=== PATIENT | male | born 1950 ===

== ENCOUNTER 2024-10-31 14:58 | Outpatient (AMB) | payer MEDICARE, SELFPAY ==
[2024-10-31 15:05] VITALS: BP 152/79; PULSE 59; RESP 18; O2SAT 98; BMI 27.4
--- NOTE | 2024-10-31 15:05 | MHC.OFFVIS ---
Vital Signs 10/31/24 15:05 Height 6 ft 3 in Weight 219 lb BMI 27.4 BP 152/79 H Blood Pressure Location Lt brachial Position Sitting Respiration 18 Pulse 59 Pulse Source Pulse Oximeter Pulse Oximetry (%) 98 Oxygen Delivery Method Room Air Intake Visit Reasons: Chronic L3,4,and 5 compression [employer] Required: No Allergies No Known Allergies Allergy (Verified 10/31/24 15:06) HPI Comments Details: Ronnie is very pleasant 74 years old gentleman who presents in my office by the referral from [place] to evaluate pain in the lower back. However on the appointment with me patient stated that his pain in the back is very mild however he would like to discuss pain in the left knee. Reported that this pain started 3 weeks ago when he developed swollen and red left knee. He thought it is podagra, exacerbation of the gout. He was in the past diagnose with the gout.. He was investigated and he was found to be positive for Lyme disease. He reports pain in the left knee very severe. He has an appointment with infectious disease doctor to evaluate whether or not he needs antibiotic therapy to treat his Lyme disease. In terms of tissue damage he describes his pain as sharp, hot burning, dull, aching, tiring, exhausting sensation possible. He never had physical therapy for this condition. He had x-ray at [facility] which is not available for me today. In fact he has x-ray for the lumbar spine there as well which is also not available for me today. He never had any injections. He was given indomethacin which helps his pain minimally to moderately and at least it decreased some swelling. Also took 6 days course of taper of prednisone. He never had any injections. His past medical history significant for coronary artery disease with 50% lad block and 10% circumflex block, he also has history of kidney stones. He had lithotripsy to treat his kidney stones. He denies smoking cigarettes he denies drinking alcohol he drinks green tea he denies soda he denies recreational drugs at this time however reports history of cocaine abuse in the distant past. Review of Systems Const All systems reviewed & are unremarkable except as noted in HPI and below ENT Reports Normal hearing present Neuro Reports Normal hearing present, Denies Abnormal speech present, Denies confusion and Denies Sensory deficit (Neuro) Psych Denies confusion Physical Exam Vital Signs: Last Vital Signs Pulse 59 10/31/24 15:05 Resp 18 10/31/24 15:05 BP 152/79 H 10/31/24 15:05 Pulse Ox 98 10/31/24 15:05 Oxygen Delivery Method Room Air 10/31/24 15:05 BMI result Body Mass Index 27.4 Const General: no acute distress; No confusion Nutritional Appearance: average body habitus and well nourished Orientation/consciousness: patient oriented x3 and No confusion Limitations: no limitations Eyes General: appearance normal, both eyes and all related structures Pupils: Equal, round and reactive pupils present EOM: EOMs intact bilaterally Neck Neck: Yes full ROM Chest Chest palpation & inspection: normal inspection of the chest Resp Effort & Inspection: normal respiratory effort, able to speak in complete sentences, normal respiratory pattern, no audible wheezes and no cough Cardio Jugular venous distension: no JVD GI Inspection: Yes normal to inspection Neuro General: patient oriented x3, gait normal and No confusion Cranial nerves: Yes CN's II-XII intact bilaterally, Yes Equal, round and reactive pupils present, Yes Normal hearing present and Yes Ability to bilaterally elevate shoulders present Speech: No Abnormal speech present Gait exam (Neuro): Normal gait present Motor exam (neuro): 5/5 motor strength present throughout Sensory Exam: No Sensory deficit (Neuro) Extrem Other: On the examination there is no significant redness or swelling of the left knee in comparison to the right 1 no crepitus on motions. The range of motion of the left knee is preserved. There is tenderness on palpation in the medial surface of the left knee. General: No pedal edema Psych Speech and movement: Normal speech and movement present Affect: normal affect Attitude: cooperative Thought process: Normal thought process present Thought content: Normal thought content present Insight: Good insight present (Psych) Judgement: Good judgement present (Psych) Assessment & Plan Assessment & Plan (1) Chronic pain syndrome: Code(s): G89.4 - Chronic pain syndrome Category: Medical (2) Left knee pain: Code(s): M25.562 - Pain in left knee Category: Medical (3) Gout: Code(s): M10.9 - Gout, unspecified Category: Medical (4) Lyme disease: Code(s): A69.20 - Lyme disease, unspecified Category: Medical Plan If symptoms and signs of left knee pain of this patient is are coming from the exacerbation of the Lyme disease he needs to be treated with antibiotics. He has an appointment with infectious disease to make a decision. If this is coming from the gout he needs to be treated with allopurinol. In any case I will send him for physical therapy for the left knee pain. If his condition it does not require antibiotic treatment he is welcome to come back and we will discuss further treatment. I also will request him to sign medical information release note and obtained from his primary care doctor image reports about his left knee x-ray as well as image reports of the lower back x-ray. No new appointment at this time the patient with give us a call after he will complete physical therapy. Orders: Orders PT Evaluation and Treatment Today M25.562 - Pain in left knee Patient Instructions: I here by testify that I spent 45 minutes in conversation with this patient as well as planning his care and organizing this note. Coding Level of Care Code New Pt Level 4 (84426) Diagnoses Chronic pain syndrome G89.4 Left knee pain M25.562 Gout M10.9 Lyme disease A69.20
--- OUTSIDE RECORDS SUMMARY | 2024-10-31 16:19 | XMS_ITS | Clinical Summary ---
Author Organization [facility] Address [address] [place] [address] Phone Care Team Providers Care Coat Joiner Name Role Phone Talia Nicholas MD Primary Care Provider [phone] Allergies No known active allergies Medications acetaminophen (TYLENOL) 500 mg tablet Take 1 tablet (500 mg total) by mouth every 6 (six) hours if needed. 4 Active cyanocobalamin (VITAMIN B-12) 500 mcg tablet Take 1 tablet (500 mcg total) by mouth 1 (one) time each day. 90 each 3 5 026 Active indomethacin (INDOCIN) 25 mg capsuleIndicati ons:Chronic gout of knee, unspecified cause, unspecified laterality Take 1 capsule (25 mg total) by mouth 3 (three) times a day if needed for mild pain (pain). 90 capsule 5 5 026 Active diclofenac (VOLTAREN) 75 mg EC tablet Take 1 tablet (75 mg total) by mouth 2 (two) times a day. Do not crush, chew, or split. 60 tablet 5 Active meclizine (ANTIVERT) 25 mg tablet Take 1 Tablet by mouth 3 times daily as needed for Other (vertigo). 4 025 Discontinu ed(Therapy completed) clotrimazole-be tamethasone (LOTRISONE) 1-0.05 % creamIndication s:Rash Apply topically 2 (two) times a day. 30 g 3 4 025 Discontinu ed(Therapy completed) multivitamin tablet Take 1 tablet by mouth 1 (one) time each day. 025 Discontinu ed(Therapy completed) hydrocortisone 2.5 % cream Apply topically 2 (two) times a day if needed for irritation or rash. 30 g 5 5 025 Discontinu ed(Therapy completed) predniSONE (DELTASONE) 20 mg tablet Take 3 tabs (60mg) daily for 3 days, then take 2 tabs (40mg) daily for 3 days, then take 1 tab (20mg) daily for 3 days. 18 tablet 5 025 Active Problems Problem Noted Date Diagnosed Date Asthma 12/07/2023 CAD (coronary artery disease) 08/18/2021 Assessment & Plan (01/31/2024 1:47 PM EST): Orders: Stress echocardiogram (TTE) exercise with PRN contrast, bubble, strain, and 3D order panel; Future COVID-19 08/17/2021 Chest pain 04/30/2021 Assessment & Plan (01/31/2024 1:47 PM EST): Orders: ECG 12 lead Palpitations 04/30/2021 Erosive esophagitis 11/02/2017 COPD (chronic obstructive pu lmonary disease) ([facility] V24, [facility] V28) 10/21/2017 Esophageal reflux 10/13/2017 Assessment & Plan (09/17/2024 9:14 AM EDT): Orders: Lipid panel with reflex to direct LDL; Future Comprehensive metabolic panel; Future Hiatal hernia 10/13/2017 Gout 07/21/2017 Assessment & Plan (09/17/2024 9:14 AM EDT): Orders: Lipid panel with reflex to direct LDL; Future Comprehensive metabolic panel; Future Hypertension 07/21/2017 Assessment & Plan (09/17/2024 9:14 AM EDT): Orders: Lipid panel with reflex to direct LDL; Future Comprehensive metabolic panel; Future Assessment & Plan (09/17/2024 9:14 AM EDT): Orders: Lipid panel with reflex to direct LDL; Future Comprehensive metabolic panel; Future Assessment & Plan (01/31/2024 1:47 PM EST): Vitamin B12 deficiency 05/01/2017 Ventricular bigeminy 04/27/2017 Insomnia 05/21/2016 Vitamin D deficiency 11/01/2015 Esophageal stricture 06/05/2015 Encounters Date Type Department Care Team Description 10/23/2024 12:30 PM EDT Consult Orthopedics [address] [phone] Ari Contreras PA Effusion of left knee (Primary Dx); Acute pain of left knee 10/03/2024 12:45 PM EDT - 10/03/2024 11:59 PM EDT Hospital Encounter [facility] Xray [address] [place] [phone] Knee swelling Discharge Disposition: Home or Self Care 10/03/2024 12:00 PM EDT Office Visit Internal Medicine [facility] [address] [phone] Talia Nicholas MD Knee swelling (Primary Dx); Acute gout of left knee, unspecified cause 10/01/2024 Telephone Internal Medicine [facility] [address] [phone] Talia Nicholas MD 09/24/2024 Telephone Internal Medicine - [facility] [address] [phone] Talia Nicholas MD 09/17/2024 9:33 AM EDT - 09/17/2024 11:59 PM EDT Hospital Encounter [facility] Xray [address] [place] [phone] Chronic midline low back pain without sciatica Discharge Disposition: Home or Self Care 09/17/2024 8:30 AM EDT Office Visit Internal Medicine [facility] [address] [facility] [address] [place] [address] Talia Nicholas MD Primary hypertension (Primary Dx); Encounter for subsequent annual wellness visit (AWV) in Medicare patient; Chronic gout of knee, unspecified cause, unspecified laterality; Gastroesophageal reflux disease without esophagitis; Nephrolithiasis; Hypertension, unspecified type; Screening for malignant neoplasm of prostate; Chronic midline low back pain without sciatica from Last 3 Months Immunizations Name Administration Dates Next Due Pneumococcal conjugate 13 [facility] (Prevnar 13, PCV13) 2mo and older 06/08/2017 Medical History Medical History Date Comments Asthma DX:Asthma COPD (chronic obstructive pu lmonary disease) ([facility] V24, [facility] V28) 10/21/2017 DX:COPD (chronic o bstructive pulmonary disease) ([facility]) Erosive esophagitis 11/02/2017 DX:Erosive e sophagitis Esophageal reflux 10/13/2017 DX:Esophageal reflux Esophageal stricture 06/05/2015 DX:Esophage al stricture Gout 07/21/2017 DX:Gout Hiatal hernia 10/13/2017 DX:Hiatal hernia Hypertension 07/21/2017 DX:Hypertension Insomnia 05/21/2016 DX:Insomnia Ventricular bigeminy 04/27/2017 DX:Ventricu lar bigeminy Vitamin B12 deficiency 05/01/2017 DX:Vitami n B12 deficiency Vitamin D deficiency 11/01/2015 DX:Vitamin D deficiency Family history of cardiovasc ular disease DX:Family history of cardiov ascular disease Covid DX:COVID Chest pain DX:Chest pain Family History Medical History Relation Name Comments No Known Problems Aunt Macular degeneration Brother corneal transplant No Known Problems Father No Known Problems Maternal Grandfather No Known Problems Maternal Grandmother No Known Problems Mother No Known Problems Other No Known Problems Paternal Grandfather No Known Problems Paternal Grandmother No Known Problems Sister No Known Problems Uncle Relation Name Status Comments Aunt Brother Father Maternal Grandfather Maternal Grandmother Mother Other Paternal Grandfather Paternal Grandmother Sister Uncle Social History Tobacco Use Types Packs/Day Years Used Date Smoking Tobacco: Never Smokeless Tobacco: Never Tobacco Cessation:Counseling Given: Not Answered Alcohol Use Standard Drinks/Week Comments Not Currently 0 (1 standard drink = 0.6 oz pur e alcohol) Housing Instability Answer Date Recorde d Are you worried that in the next 2 months you may not have stable housing? Patient declined 09/10/2024 Food Access & Nutrition Answer Date Rec orded Do you have access to a vari ety of food including fruits and vegetables? Yes 09/10/2024 Access to Healthcare Answer Date Record ed Within the last 3 months, ho w many times did you visit the emergency department for your medical care? 0 09/10/2024 Health Literacy Answer Date Recorded How often do you need to hav e someone help you when you read instructions, pamphlets, or other written material from your doctor or pharmacy? Never 09/10/2024 Caregiver: How often do you need to have someone help you when you read instructions, pamphlets, or other written material from your doctor or pharmacy? Not on file 09/10/2024 Financial Risk Answer Date Recorded How hard is it for you to pa y for the very basics like food, housing, medical care, and air conditioning / heating? Patient declined 09/10/2024 Transportation Answer Date Recorded Has the lack of transportati on kept you from meetings, work, or from getting things needed for daily living? No Has the lack of transportati on kept you from medical appointments or from getting medications? No 09/10/2024 Social Isolation Answer Date Recorded How often do you feel lonely or isolated from th ose around you? Never 09/10/2024 Food Risk Answer Date Recorded Within the past 12 months we worried whether our food would run out before we got money to buy more. Never true 09/10/2024 Within the past 12 months th e food we bought just didn't last and we didn't have money to get more. Never true 09/10/2024 Dependent Care Answer Date Recorded Do you need help finding or paying for care for your loved ones. For example, children's service supervisor or elderly care for an older adult? No 09/10/2024 Education Answer Date Recorded Do you think completing more education or training, like finishing a GED, going to college, or learning a trade, would be helpful for you? No 09/10/2024 Employment and Income Answer Date Recor ded During the last four weeks, have you been actively looking for work? No 09/10/2024 Living Situation Answer Date Recorded What is your living situation? 0 09/10/2024 Sex and Gender Information Value Date Recorded Sex Assigned at Not on file Legal Sex Male 6:41 PM EST Gender Identity Not on file Sexual Orientation Straight 10/16/2024 11 :41 PM EDT Obstetrics History Last Filed Vital Signs Vital Sign Reading Time Taken Comments Blood Pressure 136/76 10/03/2024 12:14 PM EDT Pulse 71 10/03/2024 12:14 PM EDT Temperature 36.9 C (98.4 F) 10/03/2024 12:14 PM EDT Respiratory Rate 16 10/23/2024 12:28 PM EDT Oxygen Saturation 97% 10/03/2024 12:14 PM EDT Inhaled Oxygen Concentration - - Weight 98.4 kg (217 lb) 10/23/2024 12:28 PM EDT Height 193 cm (6' 4 ) 10/23/2024 12:28 PM EDT Body Mass Index 26.41 10/23/2024 12:28 PM EDT Plan of Treatment Upcoming Encounters Date Type Department Care Team (Late st Contact Info) Description 03/20/2025 9:30 AM EST Office Visit Internal Medicine - [address] [place] [address] Talia Nicholas MD [address] [place] [phone] Health Maintenance Due Date Last Done Comments DTaP,Tdap,and Td Vaccines (1 - Tdap) 05/19/1971 Zoster Vaccines (1 of 2) 2002 RSV Immunization Adult Patients (1 - Risk 60-74 years 1-dose series) 2012 Pneumococcal Vaccine: 50+ Years (2 of 2 - PPSV23) 08/03/2017 06/08/2017 Colorectal Cancer Screening: Colonoscopy 02/13/2022 Hepatitis C Screening 02/13/2022 COVID-19 Vaccine ( season) 2023 Falls Risk Assessment 07/13/2024 07/14/2023 Influenza Vaccine (#1) 2024 Social Influencers of Health Screening 09/10/2025 09/10/2024 Hypertension/CHF/CAD Annual BMP Blood Test 09/17/2025 09/17/2024, 04/18/2024, 09/07/2023, Additional history exists Medicare Annual Wellness Visit 09/17/2025 09/17/2024 Cholesterol Screening (Lipid Panel) 09/17/2029 09/17/2024, 07/14/2023, 07/14/2023 Depression Screening Completed 09/17/2024, 07/14/19 24 HIB Vaccines Aged Out No longer eligi ble based on patient's age to complete this topic HPV Vaccines Aged Out No longer eligi ble based on patient's age to complete this topic Hepatitis A Vaccines Aged Out No long er eligible based on patient's age to complete this topic Hepatitis B Vaccines Aged Out No long er eligible based on patient's age to complete this topic IPV Vaccines Aged Out No longer eligi ble based on patient's age to complete this topic MMR Vaccines Aged Out No longer eligi ble based on patient's age to complete this topic Meningococcal ACWY Vaccine Aged Out N o longer eligible based on patient's age to complete this topic Meningococcal B Vaccine Aged Out No l onger eligible based on patient's age to complete this topic RSV Immunization Patients Under 20 months Aged Out No longer eligible based on patient's age to complete this topic Varicella Vaccines Aged Out No longer eligible based on patient's age to complete this topic Procedures Procedure Name Priority Date/Time Associated Diagnosis Comments BORRELIA BURGDORFERI ANTIBODY Routine 10/23/2024 1:29 PM EDT Acute pain of left knee Effusion of left knee RHEUMATOID FACTOR Routine 10/23/2024 1:2 9 PM EDT Acute pain of left knee Effusion of left knee SEDIMENTATION RATE Routine 10/23/2024 1: 29 PM EDT Acute pain of left knee Effusion of left knee XR KNEE 4+ VIEWS LEFT Routine 10/03/2024 1:06 PM EDT Knee swelling CBC WITH AUTO DIFFERENTIAL Routine 10/03/2024 12:29 PM EDT Knee swelling URIC ACID Routine 10/03/2024 12:29 PM EDT Knee swelling CBC AND DIFFERENTIAL Routine 10/03/2024 12:29 PM EDT Knee swelling XR LUMBAR SPINE 2-3 VIEWS Routine 09/17/2024 9:54 AM EDT Chronic midline low back pain without sciatica LIPID PANEL WITH REFLEX TO DIRECT LDL Routine 09/17/2024 9:15 AM EDT Encounter for subsequent annual wellness visit (AWV) in Medicare patient Chronic gout of knee, unspecified cause, unspecified laterality Primary hypertension Gastroesophageal reflux disease without esophagitis Nephrolithiasis Hypertension, unspecified type COMPREHENSIVE METABOLIC PANEL Routine 09/17/2024 9:15 AM EDT Encounter for subsequent annual wellness visit (AWV) in Medicare patient Chronic gout of knee, unspecified cause, unspecified laterality Primary hypertension Gastroesophageal reflux disease without esophagitis Nephrolithiasis Hypertension, unspecified type PROSTATE SPECIFIC ANTIGEN SCREEN Routine 09/17/2024 9:15 AM EDT Screening for malignant neoplasm of prostate DEPRESSION SCREENING Routine 07/14/2023 FALLS RISK ASSESSMENT Routine 07/14/2023 from Last 3 Months or Most Recently Relevant to Health Maintenance Results * (ABNORMAL) Borrelia burgdorferi antibody (10/23/2024 1:29 PM EDT) Lyme IgG Antibody Positive(A) Negative LAB CHEMISTRY METHOD 10/24/2024 10:32 AM EDT [facility] Lyme IgM Antibody Negative Negative LAB CHEMISTRY METHOD 10/24/2024 10:32 AM T [facility] Lyme Ab Positive(A) Negative LAB CHEMISTRY METHOD 10/24/2024 10:32 AM T [facility] Comment: Results are consistent with B. burgdorferi (Lyme disease) in the recent or remote past. IgG-class antibodies may remain detectable for months to years following resolution of infection. Results SHOULD NOT be used to monitor or establish adequate response to therapy. Response to therapy is confirmed through resolution of clinical symptoms; additional laboratory testing SHOULD NOT be performed. If both tests are equivocal consider repeat testing in 7-14 days if clinically warranted Blood Venous blood specimen / Unknown Venipuncture / Unknown 10/23/2024 1:29 PM EDT 10/23/2024 1:29 PM EDT us Ari TOPETE LAB BLOOD ORDERABLES Final Resul t Performing Organization Address [facility] Co de Phone Number [facility] [address] [place] [address], [place] [phone] * Sedimentation rate (10/23/2024 1:29 PM EDT) [facility] Sed Rate 5 0 - 20 mm/hr LAB HEMETOLOGY METHOD 10/23/2024 4:46 PM EDT [facility] Blood Venous blood specimen / Unknown Venipuncture / Unknown 10/23/2024 1:29 PM EDT 10/23/2024 1:29 PM EDT us Ari TOPETE LAB BLOOD ORDERABLES Final Resul t Performing Organization Address [facility] de Phone Number [facility] [address] [place] [address], [place] [phone] * Rheumatoid factor (10/23/2024 1:29 PM EDT) [facility] Rheumatoid Factor <10.0 <15.0 I Unit/mL LAB CHEMISTRY METHOD 10/23/2024 5:22 PM EDT [facility] Blood Venous blood specimen / Unknown Venipuncture / Unknown 10/23/2024 1:29 PM EDT 10/23/2024 1:29 PM EDT us Ari TOPETE LAB BLOOD ORDERABLES Final Resul t Performing Organization Address [facility] Co de Phone Number [facility] [address] [place] [address], [place] [phone] * XR Knee 4+ Views Left (10/03/2024 1:06 PM EDT) Anatomical Region Laterality Modality Lower Extremities, Knee Left Radiogra phic Imaging 10/04/2024 7:44 AM EDT Impressions 10/04/2024 7:45 AM EDT There is evidence of old trauma to the lower pole of the left knee. No other bony abnormality is demonstrated. Code 42229 -------- FINAL REPORT -------- Dictated By: Enrico Cheng Dictated Date: 10/04/2024 07:44 ET Assigned Physician: Enrico Cheng Reviewed and Electronically Signed By: Enrico Cheng Signed Date: 10/04/2024 07:45 ET Workstation ID: [id number] Transcribed By: Self Edit Transcribed Date: 10/04/2024 07:44 ET Narrative 10/04/2024 7:45 AM EDT HISTORY: The patient is a 74-year-old male with several weeks of left knee pain, nontraumatic. FINDINGS: AP, lateral, internal rotation, external rotation views of the left knee are obtained. The study demonstrates irregularity of the lower pole of the patella consistent with old trauma. There is no evidence of recent fracture and there is no dislocation, arthritic change, or osteolytic or osteoblastic lesion. No joint effusion is demonstrated. Atherosclerotic arterial calcification is noted. Procedure Note Enrico Cheng MD - 10/04/2024 HISTORY: The patient is a 74-year-old male with several weeks of left kneepain, nontraumatic. FINDINGS: AP, lateral, internal rotation, external rotation views of theleft knee are obtained. The study demonstrates irregularity of the lowerpole of the patella consistent with old trauma. There is no evidence ofrecent fracture and there is no dislocation, arthritic change, orosteolytic or osteoblastic lesion. No joint effusion is demonstrated.Atherosclerotic arterial calcification is noted. IMPRESSION: There is evidence of old trauma to the lower pole of the left knee. Noother bony abnormality is demonstrated. Code 63532 -------- FINAL REPORT -------- Dictated By: Enrico Cheng Dictated Date: 10/04/2024 07:44 ET Assigned Physician: Enrico Cheng Reviewed and Electronically Signed By: Enrico Cheng Signed Date: 10/04/2024 07:45 ET Workstation ID: [id number] Transcribed By: Self Edit Transcribed Date: 10/04/2024 07:44 ET us Talia Nicholas MD IMG XR PROCEDURES Final Result * CBC auto differential (10/03/2024 12:29 PM EDT) [facility] Signature WBC 7.6 4.8 - 10.8 K/mcL LAB HEMETOLOGY METHOD 10/03/2024 2:29 PM EDT [facility] RBC 5.00 4.50 - 5.50 M/mcL LAB HEMETOLOGY METHOD 10/03/2024 2:29 PM EDT [facility] Hemoglobin 14.8 13.5 - 17.5 g/dL LAB HEMETOLOGY METHOD 10/03/2024 2:29 PM EDT [facility] Hematocrit 44.3 42.0 - 54.0 % LAB HEMETOLOGY METHOD 10/03/2024 2:29 PM EDT [facility] MCV 88.8 79.0 - 98.0 FL LAB HEMETOLOGY METHOD 10/03/2024 2:29 PM EDT [facility] MCH 29.7 27.0 - 32.0 pcg LAB HEMETOLOGY METHOD 10/03/2024 2:29 PM EDT [facility] MCHC 33.4 32.0 - 37.0 g/dL LAB HEMETOLOGY METHOD 10/03/2024 2:29 PM EDT [facility] RDW 13.0 11.0 - 15.0 % LAB HEMETOLOGY METHOD 10/03/2024 2:29 PM EDT [facility] Platelets 222 130 - 400 K/mcL LAB HEMETOLOGY METHOD 10/03/2024 2:29 PM EDT [facility] MPV 9.5 7.0 - 11.0 FL LAB HEMETOLOGY METHOD 10/03/2024 2:29 PM EDT [facility] NRBC 0.0 <1.0 % LAB HEMETOLOGY METHOD 10/03/2024 2:29 PM [facility] NRBC Absolute 0.00 <0.10 K/mcL LAB HEMETOLOGY METHOD 10/03/2024 2:29 PM [facility] Neutrophils Relative 69.7 % LAB HEMETOLOGY METHOD 10/03/2024 2:29 PM [facility] Lymphocytes Relative 20.2 % LAB HEMETOLOGY METHOD 10/03/2024 2:29 PM [facility] Monocytes Relative 8.5 % LAB HEMETOLOGY METHOD 10/03/2024 2:29 PM [facility] Eosinophils Relative 0.7 % LAB HEMETOLOGY METHOD 10/03/2024 2:29 PM [facility] Basophils Relative 0.5 % LAB HEMETOLOGY METHOD 10/03/2024 2:29 PM [facility] Immature Granulocytes Relative 0.4 % LAB HEMETOLOGY METHOD 10/03/2024 2:29 PM [facility] Neutrophils Absolute 5.32 1.50 - 7.00 K/mcL LAB HEMETOLOGY METHOD 10/03/2024 2:29 PM [facility] Lymphocytes Absolute 1.54 1.00 - 5.00 K/mcL LAB HEMETOLOGY METHOD 10/03/2024 2:29 PM [facility] Monocytes Absolute 0.65 0.20 - 1.00 K/mcL LAB HEMETOLOGY METHOD 10/03/2024 2:29 PM [facility] Eosinophils Absolute 0.05 0.00 - 0.50 K/mcL LAB HEMETOLOGY METHOD 10/03/2024 2:29 PM [facility] Basophils Absolute 0.04 0.00 - 0.20 K/mcL LAB HEMETOLOGY METHOD 10/03/2024 2:29 PM EDT [facility] Immature Granulocytes Absolute 0.03 0.00 - 0.03 K/mcL LAB HEMETOLOGY METHOD 10/03/2024 2:29 PM EDT [facility] Blood Venous blood specimen / Unknown Venipuncture / Unknown 10/03/2024 12:29 PM EDT 10/03/2024 12:29 PM EDT Talia Nicholas MD LAB BLOOD ORDERABLES Final Res ult Performing Organization Address [facility]/ZIP Co de Phone Number [facility] [address] [place] [address], [place] [phone] * Uric acid (10/03/2024 12:29 PM EDT) Uric Acid 5.6 3.7 - 9.2 mg/dL LAB CHEMISTRY METHOD 10/03/2024 6:17 PM EDT [facility] Blood Venous blood specimen / Unknown Venipuncture / Unknown 10/03/2024 12:29 PM EDT 10/03/2024 12:29 PM EDT Talia Nicholas MD LAB BLOOD ORDERABLES Final Res ult Performing Organization Address [facility]/ZIP Co de Phone Number [facility] [address] [place] [address], [place] [phone] * XR Lumbar Spine 2-3 Views (09/17/2024 9:54 AM EDT) Anatomical Region Laterality Modality Spine, L-spine Radiographic Ankita ging 09/18/2024 7:51 AM EDT Impressions 09/18/2024 7:53 AM EDT No acute findings. There is mild, grade 1, 4.1 mm posterior spondylolisthesis of L3 relative to L4 and mild, grade 1, 5.2 mm posterior spondylolisthesis of L4 relative to L5. Degenerative disc disease is present at the L3-4, L4-5, and L5-S1 levels. Code 95193 -------- FINAL REPORT -------- Dictated By: Enrico Cheng Dictated Date: 09/18/2024 07:51 ET Assigned Physician: Enrico Cheng Reviewed and Electronically Signed By: Enrico Cheng Signed Date: 09/18/2024 07:53 ET Workstation ID: [id number] Transcribed By: Self Edit Transcribed Date: 09/18/2024 07:51 ET Narrative 09/18/2024 7:53 AM EDT HISTORY: The patient is a 74-year-old male with low back pain. No history of trauma is provided. FINDINGS: AP, lateral, and coned-down spot lateral views of the lumbosacral spine are obtained. The study demonstrates mild, grade 1, 4.1 mm posterior spondylolisthesis of L3 relative to L4 and mild, grade 1, 5.2 mm posterior spondylolisthesis of L4 relative to L5. The alignment of the bony structures is otherwise anatomic. No fracture is seen there is no osteolytic or osteoblastic lesion and. There is narrowing of the L3-4, L4-5, and L5-S1 disc spaces with adjacent osteophyte formation consistent with degenerative disc disease. The remaining disc spaces are well-maintained. Atherosclerotic arterial calcification is noted. Procedure Note Enrico Cheng MD - 09/18/2024 HISTORY: The patient is a 74-year-old male with low back pain. No historyof trauma is provided. FINDINGS: AP, lateral, and coned-down spot lateral views of thelumbosacral spine are obtained. The study demonstrates mild, grade 1, 4.1mm posterior spondylolisthesis of L3 relative to L4 and mild, grade 1, 5.2mm posterior spondylolisthesis of L4 relative to L5. The alignment of thebony structures is otherwise anatomic. No fracture is seen there is noosteolytic or osteoblastic lesion and. There is narrowing of the L3-4,L4-5, and L5-S1 disc spaces with adjacent osteophyte formation consistentwith degenerative disc disease. The remaining disc spaces arewell-maintained. Atherosclerotic arterial calcification is noted. IMPRESSION: No acute findings. There is mild, grade 1, 4.1 mm posteriorspondylolisthesis of L3 relative to L4 and mild, grade 1, 5.2 mm posteriorspondylolisthesis of L4 relative to L5. Degenerative disc disease ispresent at the L3-4, L4-5, and L5-S1 levels. Code 57214 -------- FINAL REPORT -------- Dictated By: Enrico Cheng Dictated Date: 09/18/2024 07:51 ET Assigned Physician: Enrico Cheng Reviewed and Electronically Signed By: Enrico Cheng Signed Date: 09/18/2024 07:53 ET Workstation ID: [id number] Transcribed By: Self Edit Transcribed Date: 09/18/2024 07:51 ET Talia Nicholas MD IMG XR PROCEDURES Final Result * Prostate specific antigen screen (09/17/2024 9:15 AM EDT) PSA 2.55 0.00 - 4.00 ng/mL LAB CHEMISTRY METHOD 09/17/2024 8:24 PM EDT [facility] Blood Venous blood specimen / Unknown Venipuncture / Unknown 09/17/2024 9:15 AM EDT 09/17/2024 9:16 AM EDT Narrative [facility] - 09/17/2024 8:24 PM EDT The Siemens Advia Centaur Chemiluminescent Immunoassay is used. Results obtained with different assay methods or kits cannot be used interchangeably. Results cannot be interpreted as absolute evidence of the presence or absence of malignant disease. Talia Nicholas MD LAB BLOOD ORDERABLES Final Res ult [facility] [address] [place] [address], * Lipid panel with reflex to direct LDL (09/17/2024 9:15 AM EDT) Cholesterol 156 0 - 200 mg/dL LAB CHEMISTRY METHOD 09/17/2024 7:51 PM EDT [facility] Triglycerides 134 0 - 150 mg/dL LAB CHEMISTRY METHOD 09/17/2024 7:51 PM EDT [facility] HDL 41 >=40 mg/dL LAB CHEMISTRY METHOD 09/17/2024 7:51 PM EDT [facility] LDL Calculated 88 0 - 100 mg/dL LAB CHEMISTRY METHOD 09/17/2024 7:51 PM EDT [facility] VLDL Cholesterol [place] 26.8 mg/dL LAB CHEMISTRY METHOD 09/17/2024 7:51 PM EDT [facility] Non HDL Chol. (LDL+VLDL) 115 <145 mg/dL LAB CHEMISTRY METHOD 09/17/2024 7:51 PM EDT [facility] Chol/HDL Ratio 3.8 0.0 - 4.4 LAB CHEMISTRY METHOD 09/17/2024 7:51 PM EDT [facility] Blood Venous blood specimen / Unknown Venipuncture / Unknown 09/17/2024 9:15 AM EDT 09/17/2024 9:16 AM EDT us Talai Nicholas MD LAB BLOOD ORDERABLES Final Res ult [facility] [address] [place] [address], [place] [phone] * Comprehensive metabolic panel (09/17/2024 9:15 AM EDT) Sodium 139 133 - 145 mmol/L LAB CHEMISTRY METHOD 09/17/2024 7:51 PM EDT [facility] Potassium 4.3 3.5 - 5.5 mmol/L LAB CHEMISTRY METHOD 09/17/2024 7:51 PM EDT [facility] Chloride 105 96 - 110 mmol/L LAB CHEMISTRY METHOD 09/17/2024 7:51 PM T [facility] CO2 26 21 - 32 mmol/L LAB CHEMISTRY METHOD 09/17/2024 7:51 PM [facility] Anion Gap 8 3 - 11 LAB CHEMISTRY METHOD 09/17/2024 7:51 PM [facility] Glucose 87 70 - 100 mg/dL LAB CHEMISTRY METHOD 09/17/2024 7:51 PM [facility] BUN 11 5 - 25 mg/dL LAB CHEMISTRY METHOD 09/17/2024 7:51 PM [facility] Creatinine 1.04 0.70 - 1.30 mg/dL LAB CHEMISTRY METHOD 09/17/2024 7:51 PM [facility] eGFR 76 >=60 mL/min/1. 73m2 LAB CHEMISTRY METHOD 09/17/2024 7:51 PM [facility] Comment:Calculation based on the Chronic Kidney Disease Epidemiology Collaboration (CKD-EPI) equation refit without adjustment for race. BUN/Creatinine Ratio 10.6 LAB CHEMISTRY METHOD 09/17/2024 7:51 PM [facility] Calcium 8.9 8.5 - 10.5 mg/dL LAB CHEMISTRY METHOD 09/17/2024 7:51 PM [facility] AST (SGOT) 13 10 - 42 unit/L LAB CHEMISTRY METHOD 09/17/2024 7:51 PM [facility] ALT (SGPT) 17 10 - 60 unit/L LAB CHEMISTRY METHOD 09/17/2024 7:51 PM [facility] Alkaline Phosphatase 98 42 - 121 unit/L LAB CHEMISTRY METHOD 09/17/2024 7:51 PM [facility] Total Protein 7.3 6.0 - 8.0 g/dL LAB CHEMISTRY METHOD 09/17/2024 7:51 PM [facility] Albumin 4.0 3.2 - 5.0 g/dL LAB CHEMISTRY METHOD 09/17/2024 7:51 PM [facility] Total Bilirubin 0.7 0.0 - 1.4 mg/dL LAB CHEMISTRY METHOD 09/17/2024 7:51 PM EDT [facility] Blood Venous blood specimen / Unknown Venipuncture / Unknown 09/17/2024 9:15 AM EDT 09/17/2024 9:16 AM EDT us Talia Nicholas MD LAB BLOOD ORDERABLES Final Res ult [facility] [address] [place] [address], * Falls Risk Assessment (07/14/2023) Falls Risk Assessment abstracted Historical Provider HEALTH MAINTENANCE Final Result * Depression Screening (07/14/2023) Depression Screening abstracted Historical Provider HEALTH MAINTENANCE Final Result from Last 3 Months or Most Recently Relevant to Health Maintenance Insurance MEDICARE [facility] Care Teams Coat Joiner Relationship Specialty Start Date End Date Talia Nicholas MD [address] [place] [phone] PCP - General Internal Medicine 02/05/15
--- OUTSIDE RECORDS SUMMARY | 2024-10-31 16:19 | XMS_ITS | Clinical Summary ---
Author Organization [facility] Address [address] [place] [address] Care Team Providers Care Squeegee Operator Name Role Phone Talia Nicholas MD Primary Care Provider [phone] Allergies No known active allergies Medications Medication Sig Dispensed Refills Start Date End Date Status vitamin B-12 (CYANOCOBALAMIN) 500 MCG tablet Take 1 tablet (500 mcg total) by mouth daily. 0 07/15/2023 Active Active Problems Problem Noted Date Diagnosed Date Retroperitoneal lymphadenopathy 09/19/2023 Axillary lymphadenopathy 09/19/2023 Periportal lymphadenopathy 09/19/2023 Elevated sed rate 09/19/2023 Family History Medical History Relation Name Comments Cancer Father Stroke Mother Relation Name Status Comments Father Mother Social History Tobacco Use Types Packs/Day Years Used Date Smoking Tobacco: Never Smokeless Tobacco: Never Alcohol Use Standard Drinks/Week Comments Not Currently 0 (1 standard drink = 0.6 oz pur e alcohol) Sex and Gender Information Value Date Recorded Sex Assigned at Not on file Gender Identity Not on file Sexual Orientation Not on file Job Start Date Occupation Industry Not on file Not on file Not on file Last Filed Vital Signs Vital Sign Reading Time Taken Comments Blood Pressure 134/79 09/19/2023 1:03 PM EDT Pulse 84 09/19/2023 1:03 PM EDT Temperature 37 C (98.6 F) 09/19/2023 1:03 PM EDT Respiratory Rate - - Oxygen Saturation 97% 09/19/2023 1:03 PM EDT Inhaled Oxygen Concentration - - Weight 98 kg (216 lb) 09/19/2023 1:03 PM EDT Height 190.5 cm (6' 3 ) 09/19/2023 1:03 PM EDT Body Mass Index 27 09/19/2023 1:03 PM EDT Plan of Treatment Health Maintenance Due Date Last Done Comments Hepatitis C Screening 1950 COVID-19 Vaccine (#1) 1950 Depression Screening 1964 Preventative Health Evaluation 1970 DTap / Tdap / Td (1 - Tdap) 05/19/1971 Colon Cancer Screening (Colonoscopy) 1997 Shingrix-Zoster Vaccine (1 of 2) 2002 Fall Risk Assessment 2017 Pneumococcal Vaccine (2 of 2 - PPSV23 or PCV20) 06/08/2018 06/08/2017 Influenza Vaccine (#1) 2024 RSV Adult > 60+ Yrs or Pregn ant (1 - 1-dose 75+ series) 05/19/2027 Hepatitis B Vaccines Aged Out No long er eligible based on patient's age to complete this topic RSV Ped < 20 months Aged Out No longe r eligible based on patient's age to complete this topic Care Teams Squeegee Operator Relationship Specialty Start Date End Date Talia Nicholas MD [address] [place] [address] [address] [place] [id number] PCP - General Internal Medicine 09/14/23
--- OUTSIDE RECORDS SUMMARY | 2024-10-31 16:20 | XMS_ITS ---
Author Name [facility] Organization Unknown Care Team Organization Name Specialty Phone Email Start Date End Da te [facility] ACO 10/24/2024 [facility] Termed, PROVIDER Primary Care 08/13/202210/05 [facility] Talia Chaganti Primary Care 01/12/2022 10/24/19 24
== END 2024-10-31 15:33 | disposition home or self-care (01) ==
PROVIDERS: PCP Internal Medicine; Visit Provider Anesthesiology
DX: G89.4 Chronic pain syndrome (principal); M25.562 Pain in left knee; M10.9 Gout, unspecified; A69.20 Lyme disease, unspecified
CPT/HCPCS: 99204

== ENCOUNTER → 2024-10-31 14:58 | Outpatient (BNVA) | payer MEDICARE, BC, SELFPAY | PROVIDERS: PCP Internal Medicine; Visit Provider Anesthesiology | DX: M25.562 Pain in left knee (principal); M10.9 Gout, unspecified; A69.20 Lyme disease, unspecified; G89.4 Chronic pain syndrome | CPT/HCPCS: 99202 ==